=== PATIENT | female | born 1940 | race Caucasian/White ===

== ENCOUNTER → 2016-12-30 | Outpatient (CLI) | payer OTHER, BC ==
[~2016-12-30] VITALS: Ht 157.5 cm; Wt 64.0 kg
[~2016-12-30] MED LIST: ADVAIR 250-501 EACH INH; AMBEREN PO; AMBIEN 5 MG TABL5 M1 PO; AMITRIPTYLINE H10 M3 PO; AMITRIPTYLINE H25 M2 PO; APAP500 PO; BENICAR20 MG PO; CALCIUM 600 +1 EAC5 PO; CALTRATE-600 W1 EACH PO; CELEBREX 200 M200 M1 PO; COMPOUND CREAM; ELAVIL PO; GABAPENTIN100 MG PO; HCTZ PO; HYDROCHLOROTHIA25 M1 PO; HYDROCODON-ACE1 EAC7 PO; HYDROCODON-ACE1 EACH PO; HYDROCODONE-AP1 EAC6 PO; IRON PO; IRON325 PO; LEVOTHYROXINE0.05 MG PO; LIPITOR PO; LIPITOR10 MG PO; NEURONTIN 300300 M1 PO; PRAVACHOL20 MG PO; PREVACID 30MG C30 M1 PO; PRILOSEC 10MG C10 MG PO; PROZAC 20 MG20 M1 PO; SUPER B-50 COM1 EACH PO; TRAMADOL 50 MG50 MG PO; VITAMIN D; VITAMIN D1000 UNI1 PO; VITAMINC500 PO; VOLTAREN GEL 1100 G1
--- NOTE | ~2016-12-30 | HPC ---
[facility] [place] [address] PAIN MANAGEMENT CONSULTATION Name: DAREK KISER Room #: REG RENITA Ki.#: [id number] Admission: 12/30/16 Attend Phys: Antelmo Hodgson MD Discharge: Date of : 39 Report #: [id number] THIS REPORT FOR: //name// CC: Med Hodgson DATE OF SERVICE: 12/30/2016 Followup visit for trochanteric bursitis. The patient returns to the pain clinic today for injections. I remember writing over the injections off and on now for nearly 10 years for this trochanteric bursitis. She responds almost always. Last time she had received an injection, she had months of good pain relief, though pain is now returning. She has a lot of family graduations coming up and she would like to be at her best for that. She will be on her feet a lot. Pain is scored as an 8/10, particularly with standing or walking. Pain is in the low back, but really the majority of her pain is well localized right over the greater trochanter on each side. MEDICATIONS: Omeprazole, Celebrex, amitriptyline, acetaminophen, Pravachol, vitamin C, vitamin B, levothyroxine, calcium, hydrochlorothiazide, Ambien, Prevacid, Prozac and Benicar. ALLERGIES: CEPHALEXIN, ASPIRIN and MELOXICAM. PHYSICAL EXAMINATION: GENERAL: The patient is a delightful 76-year-old, who looks younger than her stated age. VITAL SIGNS: Her blood pressure is 149/76, heart rate 73. MUSCULOSKELETAL: She moves from sitting to standing position, walks with antalgic feature. She has a positive Meera affecting each hip. She has exquisite tenderness over the greater trochanter bilaterally, consistent with her previous diagnosis of trochanteric bursitis. IMPRESSION: Bilateral trochanteric bursitis. PROCEDURE: Bilateral injection of trochanteric bursa. DESCRIPTION OF PROCEDURE: Skin was prepped with ChloraPrep first on the right. Skin was anesthetized and a 25-gauge needle was used to infiltrate a total of 5 mL of bupivacaine mixed with 40 mg of triamcinolone. She tolerated the procedure well. Needle was removed. She was moved to the opposite side and the left trochanteric bursa was injected also with 5 mL of bupivacaine and 40 mg of triamcinolone. [address] [address] PAIN MANAGEMENT CONSULTATION Name: DAREK KISER Room #: REG RENITA Flannery#: [id number] Admission: 12/30/16 Attend Phys: Antelmo Hodgson MD Discharge: Date of : 39 Report #: [id number] She tolerated the procedure well. Pain was markedly reduced at discharge and we will see her back in the clinic as needed. By: [id number] 0133 Antelmo Hodgson MD /nt
[2016-12-30 14:26] VITALS: BP 134/76
== END | disposition home or self-care (01) ==
LOC: PAIN 07:01
DX: M70.62 Trochanteric bursitis, left hip (principal); M70.61 Trochanteric bursitis, right hip; G89.29 Other chronic pain; Z87.891 Personal history of nicotine dependence

== ENCOUNTER → 2017-05-24 | Outpatient (CLI) | payer OTHER, BC ==
[~2017-05-24] VITALS: Ht 157.5 cm; Wt 65.0 kg
--- NOTE | ~2017-05-24 | HPC ---
[facility] [address] [address] PAIN MANAGEMENT CONSULTATION Name: DAREK KISER Room #: REG [facility].#: [id number] Admission: 05/24/17 Attend Phys: Antelmo Hodgson MD Discharge: Date of : 39 Report #: [id number] THIS REPORT FOR: //name// CC: Med Hodgson DATE OF SERVICE: 05/24/2017 Followup visit for trochanteric bursitis, bilateral. Managing the patient in the clinic now for nearly a decade. She comes in periodically for injections for her trochanteric bursitis. She fortunately responds beautifully to injections, gets nearly complete pain relief, up to 90% pain relief and it lasts generally for 2-3 months. After the injections, she is able to do most of her activities with great improvement including walking and standing and working in the kitchen and doing household activities. She is here today for an injection, hopeful to avoid additional strong pain medication. MEDICATIONS: Reviewed and reconciled. ALLERGIES: KEFLEX, ASPIRIN, MELOXICAM. PHYSICAL EXAMINATION: Blood pressure 118/68, pulse is 87, respirations 16. BMI is 26.2. She has localized tenderness quite significant overlying the trochanter on each side. Pain radiates both forward and backward. It does not extend more than about 3 fingerwidths below the most prominent point of the greater trochanter palpated laterally. IMPRESSION: Bilateral trochanteric bursitis. PROCEDURE: Trochanteric bursa injection, bilateral. PROCEDURE: The patient was placed first in the left lateral decubitus position. Skin was prepped over the right greater trochanter. A 25-gauge needle was used to infiltrate a total of 5 mL 0.25% bupivacaine mixed with 40 mg of triamcinolone. Needle was removed. The patient was repositioned with the left hip down, right hip up and the right greater trochanter was identified with exquisite tenderness reported by the patient. I then gently injected an additional 5 mL of 0.25% bupivacaine mixed with 40 mg triamcinolone. She tolerated the procedure well and was observed for 30 minutes and discharged. [address] [address] PAIN MANAGEMENT CONSULTATION Name: RASHELDAREK YOU [facility] [id number] Admission: 05/24/17 Attend Phys: Antelmo Hodgson MD Discharge: Date of : 39 Report #: [id number] Followup visit planned in the Pain Clinic on a p.r.n. basis. By: 1156 0009 Antelmo Hodgson MD /nt
[2017-05-24 09:35] VITALS: BP 118/68
== END | disposition home or self-care (01) ==
LOC: PAIN 07:19
DX: M70.62 Trochanteric bursitis, left hip (principal); M70.61 Trochanteric bursitis, right hip; G89.29 Other chronic pain; Z88.6 Allergy status to analgesic agent; Z88.1 Allergy status to other antibiotic agents; Z87.891 Personal history of nicotine dependence; Z79.899 Other long term (current) drug therapy; Z98.890 Other specified postprocedural states

== ENCOUNTER → 2017-11-25 | Outpatient (CLI) | payer OTHER, BC ==
[~2017-11-25] VITALS: Ht 157.5 cm; Wt 65.4 kg
[~2017-11-25] MED LIST changes: +BENICAR40 MG PO
--- NOTE | ~2017-11-25 | HPC ---
[facility] [place] [address] PAIN MANAGEMENT CONSULTATION Name: DAREK KISER Room #: REG [facility] [id number] Admission: 11/25/17 Attend Phys: Antelmo Hodgson MD Discharge: Date of : 39 Report #: [id number] THIS REPORT FOR: //name// CC: Med Hodgson DATE OF SERVICE: 11/25/2017 Followup visit for management of trochanteric bursitis. This is a followup for the patient, who returns to Pain Clinic today for injection. She was first seen in our clinic in 1999. So, it has been 19 years that I have known her. Over the course of the last 19 years, she has responded beautifully to injections for trochanteric bursitis. In 2014, 2015, and 2016, she received no more than 3 injections when the pain became severe. She presents today for injection. She says that her pain score intensity is high 8/10 with localized tenderness. Pain is directly over the trochanteric bursa. It is made worse with standing and walking. New changes include arthritis of the left knee, which has progressed to the point requiring arthroscopy in 08/2017. She has been discussing the possibility of a knee replacement. MEDICATIONS: Reviewed and reconciled from the electronic medical record. I do not provide medication for her. Her primary care physician is Dr. Med Christopher. We did discuss the possibility of having a small amount of hydrocodone on hand to use only for severe pain. She has used this in the past with success. I have agreed to provide her with 30 tablets not to be used on a daily basis, but to be used when the pain is severe. PQRS review shows her to be fit and active for 76-year-old. She is 5 feet 2 inches, 144 with BMI of 26.4. Blood pressure is 133/65, heart rate 88. Her O2 sats is 100. Pain intensity 8/10. She is not a fall risk. She does not require the need of a cane or a walker. She is on no blood thinners. She has been treated by Dr. Christopher for hypertension and is well managed. She did in the past used opioids on a more regular basis. She signed an opioid agreement in fact on 05/08/2016, but I have not provided her with medication since that time. We reviewed the opioid crisis in [place] and the responsibilities of safeguarding even the small amount of medication and use cautiously for severe pain episodes. Physical exam reveals exquisite bilateral tenderness over the greater trochanter. IMPRESSION: Trochanteric bursitis, which has responded favorably to injections. [address] [address] PAIN MANAGEMENT CONSULTATION Name: DAREK KISER Room #: REG [facility].#: [id number] Admission: 11/25/17 Attend Phys: Antelmo Hodgson MD Discharge: Date of : 39 Report #: [id number] PROCEDURE: Bilateral trochanteric bursa injection. The patient was placed in the left lateral decubitus position. Skin was prepped over the right greater trochanter. I used a 2-inch 25-gauge needle to infiltrate a total of 5 mL of 0.25% bupivacaine with 40 mg of triamcinolone around the bursa and greater trochanter. Needle was removed. The patient was repositioned with the left hip down on the right hip up. I reinjected that side in the similar fashion. Same medication was used as well. She tolerated the procedure well. She was observed for 45 minutes and discharged with a followup visit scheduled in the Pain Clinic on an as needed basis. <ELECTRONICALLY SIGNED> By: Antelmo Hodgson MD 12/20/17 1408 [id number] [id number] Antelmo Hodgson MD /nt
[2017-11-25 10:21] VITALS: BP 133/65
== END | disposition home or self-care (01) ==
LOC: PAIN 06:57
DX: M70.62 Trochanteric bursitis, left hip (principal); M70.61 Trochanteric bursitis, right hip; Z87.891 Personal history of nicotine dependence

== ENCOUNTER → 2018-02-03 | Outpatient (CLI) | payer OTHER, BC ==
[~2018-02-03] VITALS: Ht 157.5 cm; Wt 65.3 kg
--- NOTE | ~2018-02-03 | HPC ---
[facility] [place] [address] PAIN MANAGEMENT CONSULTATION Name: DAREK KISER Room #: REG R[facility]ITA Ki.#: [id number] Admission: 02/03/18 Attend Phys: Antelmo Hodgson MD Discharge: Date of : 39 Report #: [id number] THIS REPORT FOR: //name// CC: Med Hodgson DATE OF SERVICE: 02/03/2018 Followup visit for bilateral trochanteric bursitis. The patient returns to pain clinic today for injections. She has always responded fairly well to these trochanteric injections. The duration of response has not been quite as good for her most recent injection. She would like to repeat the injection today. Pain is worse on the right. She went to a seminar recently for stem cells. There may be a role for stem cells in this condition in the future; however, at the exorbitant cost, I think that it is something I would not recommend for her. The physician who put on the seminar did not make a great impression on the patient. I will keep abreast of the scientific literature and if in the future feel that this may provide better or more lasting relief, I will let her know. PQRS reviewed today shows no history of osteoarthritis. She has a BMI of 26. She has a history of hypertension, under treatment by primary. She is on an opioid agreement signed once again on 02/03/2018. Her risk assessment tool is zero, functional assessment tool of 33/70. PHYSICAL EXAMINATION: BMI is 26. Blood pressure 104/67, heart rate 84. Examination of the area of pain reveals tenderness directly overlying the greater trochanter on each side. IMPRESSION: Trochanteric bursitis, which has previously and always responded fairly well to injection therapy. PROCEDURE: Trochanteric bursa injection. She was placed first on the left side and skin was prepped with ChloraPrep. A 25-gauge needle was used to infiltrate a total of 5 mL of bupivacaine 0.5% with 40 mg triamcinolone. Needle was removed. She was repositioned on the left, right hip up and I injected the area surrounding the greater trochanter with 5 mL of 0.5% bupivacaine mixed with 40 mg triamcinolone. She tolerated the procedure well. She was observed for [address] [facility] [address] [place] [address] PAIN MANAGEMENT CONSULTATION Name: DAREK KISER Room #: REG [facility].#: [id number] Admission: 02/03/18 Attend Phys: Antelmo Hodgson MD Discharge: Date of : 39 Report #: [id number] minutes and discharged. Pain reduction was only minimal at discharge. Hopefully, she will see further improvement over the next day or so. <ELECTRONICALLY SIGNED> By: Antelmo Hodgson MD 03/14/18 1230 [id number] [id number] Antelmo Hodgson MD /nt
[2018-02-03 10:27] VITALS: BP 104/67
== END | disposition home or self-care (01) ==
LOC: PAIN 07:05
DX: M70.61 Trochanteric bursitis, right hip (principal); M70.62 Trochanteric bursitis, left hip; G89.29 Other chronic pain; I10 Essential (primary) hypertension; Z87.891 Personal history of nicotine dependence; Z88.8 Allergy status to other drugs, medicaments and biological substances; Z79.891 Long term (current) use of opiate analgesic; Z79.899 Other long term (current) drug therapy

== ENCOUNTER → 2018-03-10 | Outpatient (CLI) | payer OTHER, BC ==
[~2018-03-10] VITALS: Ht 157.5 cm; Wt 65.8 kg
--- NOTE | ~2018-03-10 | HPC ---
[facility] [place] [address] PAIN MANAGEMENT CONSULTATION Name: DAREK KISER Room #: REG [facility] Ki.#: [id number] Admission: 03/10/18 Attend Phys: Antelmo Hodgson MD Discharge: Date of : 39 Report #: [id number] THIS REPORT FOR: //name// CC: Med Hodgson DATE OF SERVICE: 03/10/2018 DATE OF REGISTRATION: 03/10/2018 REASON FOR VISIT: Followup visit for severe pain, left knee. HISTORY OF PRESENT ILLNESS: The patient was here for evaluation about a month ago. She has trochanteric bursitis, which does respond almost always to local injection. She complained at that time pain in her left knee and I told her about treatment options. She had a meniscectomy performed in August and has had some pain that has been persistent ever since. One option would be to treat with medication including nonsteroidal anti-inflammatory drugs. She tries to exercise regularly with some crepitus noted. She is usually able to do okay, but with prolonged activity, the pain seems to increase. We talked a bit about some alternative treatments available that she would have to pay for, such as stem cells, which have shown some success, although it is not reimbursed by insurance. Injection of triamcinolone seems to be a standard treatment has been effective for many patients as long as it is not over utilized. She would like to have an injection today. PHYSICAL EXAMINATION: GENERAL: She is pleasant, alert and oriented. VITAL SIGNS: Blood pressure is 133/65, heart rate 88, respirations 20, O2 sat 100%. She is 5 feet 2 inches, BMI of 26.4. MUSCULOSKELETAL: She has pain noted with flexion and extension. Mild crepitus in the area subpatellar worse on the medial aspect of the knee in the left. IMAGING: X-ray showed mild degenerative changes without significant osseous changes. IMPRESSION: Osteoarthritis, left knee. PROCEDURE: Left knee injection with fluoroscopic guidance. DESCRIPTION OF PROCEDURE: She was taken to fluoroscopic suite, placed supine. Skin prepped with ChloraPrep. A 25-gauge needle was gently advanced into the knee joint using a medial approach. After negative aspiration, I gently injected 4 mL of 0.5% bupivacaine mixed with 40 mg of triamcinolone. She [address] [address] PAIN MANAGEMENT CONSULTATION Name: DAREK KISER Room #: REG [facility].#: [id number] Admission: 03/10/18 Attend Phys: Antelmo Hodgson MD Discharge: Date of : 39 Report #: [id number] tolerated the procedure well. She was taken to recovery room for short observation and discharged. I will see her back on an as-needed basis. <ELECTRONICALLY SIGNED> By: Antelmo Hodgson MD 03/14/18 1230 1117 2256 Antelmo Hodgson MD /regi
[2018-03-10 10:40] VITALS: BP 136/76
== END | disposition home or self-care (01) ==
LOC: PAIN 07:23
DX: M17.12 Unilateral primary osteoarthritis, left knee (principal); Z98.890 Other specified postprocedural states; Z87.891 Personal history of nicotine dependence

== ENCOUNTER → 2018-06-13 | Outpatient (CLI) | payer OTHER, BC ==
[~2018-06-13] VITALS: Ht 157.5 cm; Wt 64.3 kg
--- NOTE | ~2018-06-13 | HPC ---
[facility] [place] [address] PAIN MANAGEMENT CONSULTATION Name: DAREK KISER Room #: REG [facility] Ki.#: [id number] Admission: 06/13/18 Attend Phys: Antelmo Hodgson MD Discharge: Date of : 39 Report #: [id number] THIS REPORT FOR: //name// CC: Med Hodgson DATE OF SERVICE: 06/13/2018 Followup visit for chronic pain. The patient is here today with 2 pains. She twisted and injured her left knee and has had a lot of difficulty standing and bearing weight over the course of the last 2 weeks. Pain is mostly in the area just below the patella. Her other pain is chronic in nature and we will see her on a frequent basis for bilateral trochanteric bursitis, which responds favorably to intermittent injections with triamcinolone. We found no other way of managing effectively. No other changes in her medical history since last visit. PHYSICAL EXAMINATION AND PQRS REVIEW: She has osteoarthritis of the knee I believe. This is confirmed by exam today. She is 5 feet, 2; 141 pounds with a BMI of 25.9. She has a pain intensity of 6/10. All medications were reviewed and reconciled. She is on no blood thinners and does have medication that she takes for hypertension as noted on the electronic medical record. She is also on opioid medication, which we provided long-term and she has signed an opioid agreement. She is at low risk for addiction. She has completed an opioid risk tool. I provide for her under terms of our agreement hydrocodone 5/325 just 30 tablets to have on hand when the pain is severe. I would put her MME at less than 5. She does not smoke nor use alcohol. BMI is 25. Further examination reveals localized tenderness bilaterally over the trochanteric bursa on both the right and left. She has rather significant tenderness in the upper portion of the knee around the patella. There is slight swelling. There is mild crepitus with flexion and extension. Drawer test is negative. IMPRESSION: 1. Chronic trochanteric bursitis, recurrent. 2. Subpatellar bursitis and osteoarthritis, left knee. RECOMMENDATIONS: I will provide injection in all 3 of these areas using a total of 80 mg of triamcinolone divided evenly at each bursa injected in combination with bupivacaine. Risks and benefits of procedures were discussed. She would like to proceed. [address] [address] PAIN MANAGEMENT CONSULTATION Name: DAREK KISER [id number] Admission: 06/13/18 Attend Phys: Antelmo Hodgson MD Discharge: Date of : 39 Report #: [id number] PROCEDURE: The patient was taken to fluoroscopic suite. She was placed in the supine position. Skin was prepped first on the left and then the right overlying the trochanter. A 25-gauge needle was utilized to inject the trochanteric bursa on each side with 4 mL of 0.5% bupivacaine mixed with 30 mg of triamcinolone. Avalon were removed and Band-Aids were applied. Skin was prepped overlying the knee joint. We used fluoroscopic guidance to help confirm position. A 25-gauge needle was advanced subpatellar. A total of 1% lidocaine was injected. Isovue was not injected for this particular injection injected below the patella with good location using injection. I then after negative aspiration, I injected a total of 4 mL of 0.5% bupivacaine mixed with 30 mg of triamcinolone. She tolerated the procedure well and was observed for about 30 minutes and discharged. Pain reduced in all areas. Follow up as needed. By: [id number] 0143 Antelmo Hodgson MD /regi
[2018-06-13 09:10] VITALS: BP 140/98
== END | disposition home or self-care (01) ==
LOC: PAIN 07:29
DX: M70.62 Trochanteric bursitis, left hip (principal); M70.61 Trochanteric bursitis, right hip; M70.52 Other bursitis of knee, left knee; G89.29 Other chronic pain; Z85.828 Personal history of other malignant neoplasm of skin; Z88.1 Allergy status to other antibiotic agents; Z87.891 Personal history of nicotine dependence; Z88.8 Allergy status to other drugs, medicaments and biological substances; Z79.899 Other long term (current) drug therapy; Z79.891 Long term (current) use of opiate analgesic

== ENCOUNTER → 2018-08-11 | Outpatient (CLI) | payer OTHER, BC ==
[~2018-08-11] VITALS: Ht 157.5 cm; Wt 65.9 kg
--- NOTE | ~2018-08-11 | HPC ---
[facility] [address] [place] [address] PAIN MANAGEMENT CONSULTATION Name: DAREK KISER Room #: REG [facility]..#: [id number] Admission: 08/11/18 Attend Phys: Antelmo Hodgson MD Discharge: Date of : 39 Report #: [id number] THIS REPORT FOR: //name// CC: Med Vidal MD DATE OF SERVICE: 08/11/2018 CHIEF COMPLAINT: Followup visit for chronic bilateral hip pain with recurrent trochanteric bursitis and subpatellar bursitis and osteoarthritis, left knee. HISTORY OF PRESENT ILLNESS: The patient is here today to discuss her ongoing knee pain. She has considerable discomfort of the knee and it has now been present for some time. She has had a plain film x-ray which shows moderate osteoarthritis prominent in the femoral patellar compartment and a small joint effusion. It is harder and harder for her to bear weight. Her pain in the hips is tolerable and she would like to wait on repeat injections there. Normally, repeat those injections no more frequently than every 3 months. PQRS review: She has osteoarthritis of the left knee. BMI is 25.4. Pain intensity 6/10. No blood thinning medication. She is on medication for hypertension and all the medications were reviewed on the electronic medical record. She receives medication for chronic pain on an opioid agreement, hydrocodone 5/325, 30 tablets, has utilized over several months only for severe pain. She denies use of tobacco or alcohol. ADDENDUM She has now diffuse tenderness of the left knee. There is discomfort also posteriorly in the popliteal fossa. Most of the tenderness appears to be around the patella as before. There is a small joint effusion appreciated. IMPRESSION: 1. Osteoarthritis, left knee. 2. Chronic trochanteric bursitis. RECOMMENDATIONS: I referred her to Dr. Dylan Vidal for evaluation. She may be a candidate now for total knee replacement at some point in time. I will let her discuss that further with Dr. Vidal. I performed an injection at her last visit, which provided only minimal relief. I have informed her that this is an elective procedure and she can use her own judgment along with shared decision making after discussing her situation with Dr. Vidal. [address] [address] PAIN MANAGEMENT CONSULTATION Name: DAREK KISER Room #: REG [facility].#: [id number] Admission: 08/11/18 Attend Phys: Antelmo Hodgson MD Discharge: Date of : 39 Report #: [id number] I renewed her hydrocodone at 30 tablets. She will carefully safeguard them. I will see her back on an as needed basis for her hips. By: [id number] Antelmo Hodgson MD /nt
[2018-08-11 13:32] VITALS: BP 131/79
== END ==
LOC: PAIN 07-11 06:07
DX: M17.12 Unilateral primary osteoarthritis, left knee (principal); M70.61 Trochanteric bursitis, right hip; M70.62 Trochanteric bursitis, left hip; Y93.89 Activity, other specified; Z79.899 Other long term (current) drug therapy

== ENCOUNTER → 2018-09-08 | Outpatient (CLI) | payer OTHER, BC ==
[~2018-09-08] VITALS: Ht 157.5 cm; Wt 65.9 kg
--- NOTE | ~2018-09-08 | HPC ---
[facility] [place] [place] [address] PAIN MANAGEMENT CONSULTATION Name: DAREK KISER Room #: REG [facility].#: [id number] Admission: 09/08/18 Attend Phys: Antelmo Hodgson MD Discharge: Date of : 39 Report #: [id number] THIS REPORT FOR: //name// CC: Med Hodgson DATE OF SERVICE: 09/08/2018 The patient was seen on 09/08/2018 in the pain clinic. I was unable to document due to downtime of the dictating system and I was unable to document on the routine medical record. A note of her visit was hand typed into the record on the bulletin board and can be retrieved from the electronic medical record on that location. By: [id number] Antelmo Hodgson MD /nt
[2018-09-08 10:59] VITALS: BP 133/73
--- NOTE | 2018-09-08 11:14 | NUR ---
Pain Clinic Assessment: 1. History of Osteoarthritis: Not Applicable History of Rheumatoid Arthritis: Not Applicable 2. Height: 5 ft. 2 in. 157.5 cm. Weight: 145.2 lb. oz. 65.862 kg. Patient's BMI: 26.6 3. Vital Signs: BP: 133/73 Pulse: 87 Resp: 14 Temp: 02 Sat: 96 ECG Mon: 4. Pain Intensity: 6 5. Fall Risk: Dizziness: N Needs help standing or walking: N Fallen in the last 3 months: N Fall risk comments: fell a week ago- hit head- ER- HAS SEEN PCP 6. Patient on Blood Thinner: None 7. History of Hypertension: Y 8. Opioid Therapy greater than 6 weeks: Y Opiate Contract Signed: 02/03/18 9. Risk Assessment Tool Provided: janie 10. Functional Assessment Tool: 11. Recreational Drug Use: Never Drug Type: Tobacco Use: Former Smoker Tobacco Type: Amount or Packs/day: How Many Years: Alcohol Use: No Frequency: Quant:
== END | disposition home or self-care (01) ==
LOC: PAIN 07:40
DX: M70.62 Trochanteric bursitis, left hip (principal); M70.61 Trochanteric bursitis, right hip; M16.0 Bilateral primary osteoarthritis of hip; M17.0 Bilateral primary osteoarthritis of knee; G89.29 Other chronic pain; Z87.891 Personal history of nicotine dependence; Z88.8 Allergy status to other drugs, medicaments and biological substances; Z98.890 Other specified postprocedural states; Z79.899 Other long term (current) drug therapy

== ENCOUNTER → 2018-12-08 | Outpatient (CLI) | payer OTHER, BC ==
[~2018-12-08] VITALS: Ht 157.5 cm; Wt 66.4 kg
--- NOTE | ~2018-12-08 | HPC ---
[facility] [place] [address] PAIN MANAGEMENT CONSULTATION Name: DAREK KISER Room #: REG Pradeep Ki.#: [id number] Admission: 12/08/18 ������������������ Attend Phys: Antelmo Hodgson MD Discharge: ������������������ Date of : 38 Report #: [id number] THIS REPORT FOR: //name// CC: Med Hodgson DATE OF SERVICE: 12/08/2018 Followup visit for chronic fibromyalgia, osteoarthritis of bilateral knees and severe trochanteric bursitis. This is a followup visit for the patient who is here today for bilateral trochanteric bursa injections. She has done well with these injections, receiving many months of pain relief. When the pain is severe, as it is now with an 8/10, she returns to clinic for injections. We have been doing this on and off, no more than 3-4 injections per year for several years. She has an open wound on her left leg. She had hoped to have knee replacement for osteoarthritis, but will be unable to have that surgery until the wound is completely healed. She was treated with Cipro, but found that this caused increase in her fibromyalgia pain. PQRS demonstrates that she does have osteoarthritis of the knees and hips. She is on Benicar for hypertension and no blood thinners. She is not a fall risk and has not fallen recently. Her blood pressure is 147/73, heart rate 83, respirations 16. BMI 26. She is on very low-dose opioid using only an occasional 5 mg hydrocodone when the pain is very severe. She has completed an opioid risk tool and is at low risk for addiction. SOCIAL HISTORY: She denies use of tobacco or alcohol. IMPRESSION: 1. Chronic fibromyalgia. 2. Trochanteric bursitis. 3. Osteoarthritis. 4. Open wound. 5. Management of medication under terms of written opioid agreement. Low-dose hydrocodone less than 5 MME calculated. PROCEDURE: Bilateral trochanteric bursa injection. Skin prepped with ChloraPrep and a 25-gauge needle was used to infiltrate 5 mL of 0.5% bupivacaine mixed with 40 mg of triamcinolone around the trochanteric bursa on each side. She tolerated the procedure well. Pain was dramatically [facility] [address] [place] [address] PAIN MANAGEMENT CONSULTATION Name: DAREK KISER Room #: REG [facility].#: [id number] Admission: 12/08/18 ������������������ Attend Phys: Antelmo Hodgson MD Discharge: ������������������ Date of : 38 Report #: [id number] reduced at discharge and followup visit is planned as needed. Medications were renewed under terms of our written agreement. She was given 30 tablets of hydrocodone 5/325 one tablet as needed q. 8 hours. ��������������������������������������������� ���������������������������������������� By: ��������������������������������������������� [id number] 0047 Antelmo Hodgson MD /nt
[2018-12-08 10:09] VITALS: BP 147/73
--- NOTE | 2018-12-08 10:13 | NUR ---
Pain Clinic Assessment: 1. History of Osteoarthritis: Not Applicable History of Rheumatoid Arthritis: Not Applicable 2. Height: 5 ft. 2 in. 157.5 cm. Weight: 146.4 lb. oz. 66.407 kg. Patient's BMI: 26.8 3. Vital Signs: BP: 147/73 Pulse: 83 Resp: 16 Temp: 02 Sat: 96 ECG Mon: 4. Pain Intensity: 8 5. Fall Risk: Dizziness: N Needs help standing or walking: N Fallen in the last 3 months: N Fall risk comments: fell a week ago- hit head- ER- HAS SEEN PCP 6. Patient on Blood Thinner: None 7. History of Hypertension: Y 8. Opioid Therapy greater than 6 weeks: Y Opiate Contract Signed: 02/03/18 9. Risk Assessment Tool Provided: janie 10. Functional Assessment Tool: 11. Recreational Drug Use: Never Drug Type: Tobacco Use: Former Smoker Tobacco Type: Amount or Packs/day: How Many Years: Alcohol Use: No Frequency: Quant:
== END | disposition home or self-care (01) ==
LOC: PAIN 06:57
DX: M70.62 Trochanteric bursitis, left hip (principal); M70.61 Trochanteric bursitis, right hip; M79.7 Fibromyalgia; G89.29 Other chronic pain; I10 Essential (primary) hypertension; M16.0 Bilateral primary osteoarthritis of hip; M17.0 Bilateral primary osteoarthritis of knee; Z79.891 Long term (current) use of opiate analgesic; S81.802A Unspecified open wound, left lower leg, initial encounter; X58.XXXA Exposure to other specified factors, initial encounter; Y93.89 Activity, other specified; Y92.89 Other specified places as the place of occurrence of the external cause; Y99.8 Other external cause status; Z98.890 Other specified postprocedural states; Z79.899 Other long term (current) drug therapy; Z87.891 Personal history of nicotine dependence; Z88.8 Allergy status to other drugs, medicaments and biological substances

== ENCOUNTER → 2019-02-13 | Outpatient (CLI) | payer OTHER, BC ==
[~2019-02-13] VITALS: Ht 157.5 cm; Wt 67.2 kg
[~2019-02-13] MED LIST changes: +GABAPENTIN 100100 MG PO; +LIDODERM1 EACH TRANSDERM
--- NOTE | ~2019-02-13 | HPC ---
[facility] [place] [address] PAIN MANAGEMENT CONSULTATION Name: DAREK KISER Room #: REG RENITA Ki.#: [id number] Admission: 02/13/19 ������������������ Attend Phys: Antelmo Hodgson MD Discharge: ������������������ Date of : 39 Report #: [id number] THIS REPORT FOR: //name// CC: Med Hodgson DATE OF SERVICE: 02/13/2019 Followup visit for chronic fibromyalgia pain and severe trochanteric bursitis. Bilateral knee pain with osteoarthritis. The patient was seen last on 12/08/2018. She is here today again complaining of pain bilaterally in the trochanteric bursa. She has responded to injections; however, we have performed these injections quite frequently over the course of the last 6 months. I would like to try another measure. She has never used lidocaine patches. This might be helpful so that we can limit her steroid. She has had a fall in the last week. She hit her head, has been in the Emergency Room and also seen her primary care physician. It does not appear that she suffered any significant lasting injury from this fall. She was a bit unsteady on her feet. Most of her pain is in the usual locations, bilateral hips. She has continued to treat the wound on her right leg, which is slowly healing. PQRS shows history of osteoarthritis is positive. She is under treatment for hypertension. She takes opioid medication, hydrocodone 5/325 under terms of written opioid agreement. We reviewed responsibilities. She is grateful for the relief that she receives and is able to improve her day-to-day function with medications. She safeguards her medication carefully and there are no significant side effects. She has completed an opioid risk assessment tool scoring 0. SOCIAL HISTORY: She denies use of tobacco and alcohol. PHYSICAL EXAMINATION: GENERAL: She is a pleasant 78-year-old female. VITAL SIGNS: Blood pressure 142/72, heart rate 77, respirations 16. BMI 27. She moves easily from sitting to standing position. Her gait is antalgic. MUSCULOSKELETAL: Reveals tenderness bilaterally overlying the greater trochanter. IMPRESSION: 1. Trochanteric bursitis. 2. Chronic fibromyalgia. 3. Management of opioid medication under terms of written agreement. She has [facility] [address] [place] [address] PAIN MANAGEMENT CONSULTATION Name: DAREK KISER Room #: REG [facility].#: [id number] Admission: 02/13/19 ������������������ Attend Phys: Antelmo Hodgson MD Discharge: ������������������ Date of : 39 Report #: [id number] medication currently, which will extend over the next month. I will renew her medication for her today. 4. I have also initiated therapy with Lidoderm patch, bilateral. She has had a history of shingles in the past. A followup visit is scheduled in 1-2 months. ��������������������������������������������� ���������������������������������������� By: ��������������������������������������������� [id number] Antelmo Hodgson MD /nt
[2019-02-13 11:39] VITALS: BP 142/72
--- NOTE | 2019-02-13 11:52 | NUR ---
Pain Clinic Assessment: 1. History of Osteoarthritis: Not Applicable History of Rheumatoid Arthritis: Not Applicable 2. Height: 5 ft. 2 in. 157.5 cm. Weight: 148.2 lb. oz. 67.223 kg. Patient's BMI: 27.1 3. Vital Signs: BP: 142/72 Pulse: 77 Resp: 16 Temp: 02 Sat: 97 ECG Mon: 4. Pain Intensity: 7-8 5. Fall Risk: Dizziness: N Needs help standing or walking: N Fallen in the last 3 months: N Fall risk comments: fell a week ago- hit head- ER- HAS SEEN PCP 6. Patient on Blood Thinner: None 7. History of Hypertension: Y 8. Opioid Therapy greater than 6 weeks: Y Opiate Contract Signed: 02/03/18 9. Risk Assessment Tool Provided: janie 10. Functional Assessment Tool: 11. Recreational Drug Use: Never Drug Type: Tobacco Use: Former Smoker Tobacco Type: Amount or Packs/day: How Many Years: Alcohol Use: No Frequency: Quant:
== END ==
LOC: PAIN 06:42
DX: M17.0 Bilateral primary osteoarthritis of knee (principal); M79.7 Fibromyalgia; M70.60 Trochanteric bursitis, unspecified hip; Z79.891 Long term (current) use of opiate analgesic

== ENCOUNTER → 2020-02-12 | Outpatient (CLI) | payer OTHER, BC ==
[~2020-02-12] VITALS: Ht 157.5 cm; Wt 61.9 kg
--- NOTE | ~2020-02-12 | HPC ---
[facility] [place] [address] PAIN MANAGEMENT CONSULTATION Name: DAREK BRYAN Room #: REG [facility] Prudencio#: [id number] Admission: 02/12/20 Attend Phys: Antelmo Hodgson MD Discharge: Date of : 39 Report #: [id number] THIS REPORT FOR: cc: Med Christopher MD,Med Hodgson,Antelmo Jacques MD ~ CC: Med Hodgson DATE OF SERVICE: 02/12/2020 CHIEF COMPLAINT: Right knee pain. The patient is a longstanding patient who has had multiple injections for trochanteric bursitis in our clinic. She comes today complaining of pain in the right knee. She has had it injected over a month ago, but the results were limited. They were performed without the benefit of x-ray. She is here today to see if we could repeat the injection. She reports that she had her left knee replaced, but is still complaining of some pain. The right knee is painful with standing, weightbearing, and going up and down steps. She has modest amount of crepitus. The patient also complains of fibromyalgia and severe chronic pain from that, diffuse condition. PQRS review positive for osteoarthritis of knees and hips with rheumatoid arthritis with the hands most affected. She has a BMI of 24.9. Blood pressure 157/91, heart rate 61, respirations 16, O2 sat 98. Pain intensity is 8/10. She fell 1 week ago and hit her head. She went to the Emergency Room and she has seen her primary care physician, but there was no additional diagnostic testing her concern. She still has a bit of discomfort. She is on no blood thinners. She does have a history of hypertension. We reviewed all of her medications today including her antihypertensive provided by primary care physician. They are noted on the electronic medical record. She is on an opioid agreement signed in 2018. She uses hydrocodone modestly. A prescription for hydrocodone was provided last in our clinic in 2019. She tries to avoid them if possible. She has completed her risk assessment tool, her score is 0. Functional assessment score of 52/70. Pain impacts many of her day-to-day activities. She denies use of alcohol or tobacco. PHYSICAL EXAMINATION: VITAL SIGNS: As noted. MUSCULOSKELETAL: Reveals tenderness around the right knee and some mild crepitus with flexion, extension range of motion is normal. She has some mild swelling laterally. There is no Holt cyst. She has no numbness, tingling, [place] [address] PAIN MANAGEMENT CONSULTATION Name: DAREK BRYAN [id number] Admission: 02/12/20 Attend Phys: Antelmo Hodgson MD Discharge: Date of : 39 Report #: [id number] weakness in lower extremities. Examination of the left knee reveals tenderness around her scar. IMPRESSION: Osteoarthritis, status post left knee replacement, right knee pain with crepitus suggesting arthritis. PLAN: Right knee injection under fluoroscopic guidance. DESCRIPTION OF PROCEDURE: She was taken to fluoroscopic suite, placed supine. Skin was prepped over the right knee. The knee was bent slightly at 45 degrees. Using fluoroscopic guidance, I gently advanced a 25-gauge needle into the joint space. After negative aspiration, I injected 0.5 mL of Omnipaque, which demonstrated spread within the joint space and an arthrogram. This was then followed by 4 mL of 0.5% bupivacaine mixed with 40 mg of triamcinolone. She tolerated the procedure well and was observed for 30 minutes and discharged. Follow up as needed. By: [id number] Antelmo Hodgson MD /nt
[2020-02-12 13:51] VITALS: BP 157/91
--- NOTE | 2020-02-12 14:03 | NUR ---
Pain Clinic Assessment: 1. History of Osteoarthritis: KNEES HIPS History of Rheumatoid Arthritis: HANDS 2. Height: 5 ft. 2 in. 157.5 cm. Weight: 136.4 lb. oz. 61.871 kg. Patient's BMI: 24.9 3. Vital Signs: BP: 157/91 Pulse: 61 Resp: 16 Temp: 02 Sat: 98 ECG Mon: 4. Pain Intensity: 8 5. Fall Risk: Dizziness: N Needs help standing or walking: N Fallen in the last 3 months: N Fall risk comments: fell a week ago- hit head- ER- HAS SEEN PCP 6. Patient on Blood Thinner: None 7. History of Hypertension: Y 8. Opioid Therapy greater than 6 weeks: Y Opiate Contract Signed: 02/03/18 9. Risk Assessment Tool Provided: janie 10. Functional Assessment Tool: 11. Recreational Drug Use: Never Drug Type: Tobacco Use: Former Smoker Tobacco Type: Amount or Packs/day: How Many Years: Alcohol Use: No Frequency: Quant:
== END | disposition home or self-care (01) ==
LOC: PAIN 03-13 06:52
DX: M25.561 Pain in right knee (principal); M17.11 Unilateral primary osteoarthritis, right knee; I10 Essential (primary) hypertension; M19.90 Unspecified osteoarthritis, unspecified site; Z98.890 Other specified postprocedural states; Z79.899 Other long term (current) drug therapy; Z96.652 Presence of left artificial knee joint; Z87.891 Personal history of nicotine dependence

== ENCOUNTER → 2020-03-28 | Outpatient (CLI) | payer OTHER, BC | LOC: PAIN 07:57 | DX: M17.11 Unilateral primary osteoarthritis, right knee (principal) ==

== ENCOUNTER → 2020-05-09 | Outpatient (CLI) | payer OTHER, BC ==
[~2020-05-09] VITALS: Ht 157.5 cm; Wt 60.7 kg
--- NOTE | ~2020-05-09 | HPC ---
[facility] [place] [address] PAIN MANAGEMENT CONSULTATION Name: DAREK BRYAN Room #: REG RENITA Ki.#: [id number] Admission: 05/09/20 Attend Phys: Antelmo Hodgson MD Discharge: Date of : 39 Report #: [id number] THIS REPORT FOR: cc: Med Christopher MD,Med Hodgson,Antelmo Jacques MD ~ CC: Med Hodgson DATE OF SERVICE: 05/09/2020 Followup visit for chronic pain. The patient is here today complaining of pain in her right knee. This affects her ability to get around and walk. Pain intensity has increased. She has had relief from injections in the past. We talked a little bit about knee replacement. She had 1 done on the left and it continues to hurt. Although it is better, she is still a bit reluctant to go forward with additional assessment with the thought of replacing her knee. We have x-rays to confirm that there is arthropathy and if she can get some relief from the injections, we will continue that. PQRS REVIEW: Positive for osteoarthritis in her knees obviously, but also she complains of spondylosis of the back and hips. She has some history of rheumatoid arthritis with hands involvement. BMI is 24, blood pressure 118/76, heart rate 82, respirations 16, O2 sat 97. Her pain intensity today is an 8/10. Pain is worse with standing and weightbearing. She did fall a week ago. She went to the Emergency Room and had seen her PCP. Fortunately, it does not appear that she is going to have any long-term problems and her score is importance for stability using the cane if necessary. She is on no blood thinners. She has a history of hypertension. All medications were reviewed and reconciled from the electronic medical record. We do not prescribe medicines other than recommendations of nonsteroidal anti-inflammatory cream diclofenac, which she has used with some benefit. She denies tobacco and alcohol. PHYSICAL EXAMINATION: MUSCULOSKELETAL: On physical exam of the right knee, is tender to the touch, mostly medially and there seems to be small effusion, although later it appears that this may just be soft tissue swelling. She has pain with flexion and extension; has some pain with standing and weightbearing. She does not complain of her usual bursitis today. IMPRESSION: Chronic intractable pain. Multiple pain generators. She has been [facility] [address] [place] [address] PAIN MANAGEMENT CONSULTATION Name: RASHEL GUPTADAREK Jacklyn Room #: REG CLPradeep Flannery#: [id number] Admission: 05/09/20 Attend Phys: Antelmo Hodgson MD Discharge: Date of : 39 Report #: [id number] diagnosed with fibromyalgia, arthritis of the hips and knees, trochanteric bursitis, degenerative arthritis of the wrists. All of these mechanical, structural and myofascial issues have been focus of attention in the past. PROCEDURE: Right knee injection under fluoroscopic guidance. She was taken to fluoroscopic suite, placed supine. Skin was prepped with ChloraPrep and a 25-gauge 2-inch needle was advanced into the joint space. After negative aspiration, I injected 1 mL of 0.5% bupivacaine mixed with 40 mg of triamcinolone. She tolerated the procedure well. There were no complications. I did perform an arthrogram before the injection and good spread of dye was seen within the joint space. By: [id number] Antelmo Hodgson MD /nt
[2020-05-09 09:53] VITALS: BP 118/76
--- NOTE | 2020-05-09 09:59 | NUR ---
Pain Clinic Assessment: 1. History of Osteoarthritis: KNEES HIPS BACK History of Rheumatoid Arthritis: HANDS 2. Height: 5 ft. 2 in. 157.5 cm. Weight: 133.8 lb. oz. 60.691 kg. Patient's BMI: 24.5 3. Vital Signs: BP: 118/76 Pulse: 82 Resp: 16 Temp: 02 Sat: 97 ECG Mon: 4. Pain Intensity: 8 5. Fall Risk: Dizziness: N Needs help standing or walking: N Fallen in the last 3 months: N Fall risk comments: fell a week ago- hit head- ER- HAS SEEN PCP 6. Patient on Blood Thinner: None 7. History of Hypertension: Y 8. Opioid Therapy greater than 6 weeks: Y Opiate Contract Signed: 02/03/18 9. Risk Assessment Tool Provided: janie 10. Functional Assessment Tool: 11. Recreational Drug Use: Never Drug Type: Tobacco Use: Former Smoker Tobacco Type: Amount or Packs/day: How Many Years: Alcohol Use: No Frequency: Quant:
== END | disposition home or self-care (01) ==
LOC: PAIN 04-22 08:06
PROVIDERS: ATTEND Anesthesiology Pain Medicine
DX: M25.561 Pain in right knee (principal); M17.0 Bilateral primary osteoarthritis of knee; G89.29 Other chronic pain; M79.7 Fibromyalgia; M16.0 Bilateral primary osteoarthritis of hip; M19.032 Primary osteoarthritis, left wrist; M19.031 Primary osteoarthritis, right wrist; Z98.890 Other specified postprocedural states; Z79.899 Other long term (current) drug therapy; Z87.891 Personal history of nicotine dependence; Z96.652 Presence of left artificial knee joint

== ENCOUNTER → 2020-07-11 | Outpatient (CLI) | payer OTHER, BC ==
[~2020-07-11] VITALS: Ht 157.5 cm; Wt 61.0 kg
[~2020-07-11] MED LIST changes: +TRAMADOL HCL50 MG PO
[2020-07-11 14:37] VITALS: BP 158/83
--- NOTE | 2020-07-11 14:54 | NUR ---
Pain Clinic Assessment: 1. History of Osteoarthritis: KNEES HIPS BACK History of Rheumatoid Arthritis: HANDS 2. Height: 5 ft. 2 in. 157.5 cm. Weight: 134.4 lb. oz. 60.963 kg. Patient's BMI: 24.6 3. Vital Signs: BP: 158/83 Pulse: 76 Resp: 14 Temp: 02 Sat: 97 ECG Mon: 4. Pain Intensity: 9 5. Fall Risk: Dizziness: N Needs help standing or walking: N Fallen in the last 3 months: N Fall risk comments: fell a week ago- hit head- ER- HAS SEEN PCP 6. Patient on Blood Thinner: None 7. History of Hypertension: Y 8. Opioid Therapy greater than 6 weeks: Y Opiate Contract Signed: 02/03/18 9. Risk Assessment Tool Provided: janie 10. Functional Assessment Tool: 11. Recreational Drug Use: Never Drug Type: Tobacco Use: Former Smoker Tobacco Type: Amount or Packs/day: How Many Years: Alcohol Use: No Frequency: Quant:
== END | disposition home or self-care (01) ==
LOC: PAIN 06:58
PROVIDERS: ATTEND Anesthesiology Pain Medicine
DX: M25.561 Pain in right knee (principal); M17.11 Unilateral primary osteoarthritis, right knee; G89.29 Other chronic pain; Z96.652 Presence of left artificial knee joint; Z98.890 Other specified postprocedural states; Z79.899 Other long term (current) drug therapy; Z87.891 Personal history of nicotine dependence

== ENCOUNTER → 2020-09-19 | Outpatient (CLI) | payer OTHER, BC ==
[~2020-09-19] VITALS: Ht 157.5 cm; Wt 61.4 kg
[2020-09-19 09:23] VITALS: BP 126/70
--- NOTE | 2020-09-19 09:38 | NUR ---
Pain Clinic Assessment: 1. History of Osteoarthritis: KNEES HIPS BACK History of Rheumatoid Arthritis: HANDS 2. Height: 5 ft. 2 in. 157.5 cm. Weight: 135.4 lb. oz. 61.417 kg. Patient's BMI: 24.8 3. Vital Signs: BP: 126/70 Pulse: 91 Resp: 18 Temp: 02 Sat: 100 ECG Mon: 4. Pain Intensity: 9 5. Fall Risk: Dizziness: N Needs help standing or walking: N Fallen in the last 3 months: N Fall risk comments: fell a week ago- hit head- ER- HAS SEEN PCP 6. Patient on Blood Thinner: None 7. History of Hypertension: Y 8. Opioid Therapy greater than 6 weeks: Y Opiate Contract Signed: 02/03/18 9. Risk Assessment Tool Provided: janie 10. Functional Assessment Tool: 11. Recreational Drug Use: Never Drug Type: Tobacco Use: Former Smoker Tobacco Type: Cigarettes Amount or Packs/day: How Many Years: Alcohol Use: No Frequency: Quant:
== END | disposition home or self-care (01) ==
LOC: PAIN 06:37
PROVIDERS: ATTEND Anesthesiology Pain Medicine
DX: M70.62 Trochanteric bursitis, left hip (principal); M70.61 Trochanteric bursitis, right hip; G89.29 Other chronic pain; I10 Essential (primary) hypertension; M19.90 Unspecified osteoarthritis, unspecified site; Z98.890 Other specified postprocedural states; Z79.899 Other long term (current) drug therapy; Z87.891 Personal history of nicotine dependence; Z88.8 Allergy status to other drugs, medicaments and biological substances

== ENCOUNTER → 2021-05-26 | Outpatient (CLI) | payer OTHER, BC ==
[~2021-05-26] VITALS: Ht 157.5 cm; Wt 58.6 kg
[~2021-05-26] MED LIST changes: +DOXYCYCLINE 10100 M2 PO; +VITAMIN D3 COM1 EACH PO; +VITRON-C TABLE1 EAC1 PO
[2021-05-26 11:02] VITALS: BP 126/74
--- NOTE | 2021-05-26 12:03 | NUR ---
Pain Clinic Assessment: 1. History of Osteoarthritis: KNEES HIPS BACK History of Rheumatoid Arthritis: HANDS 2. Height: 5 ft. 2 in. 157.5 cm. Weight: 129.2 lb. oz. 58.605 kg. Patient's BMI: 23.6 3. Vital Signs: BP: 126/74 Pulse: 75 Resp: 16 Temp: 02 Sat: 97 ECG Mon: 4. Pain Intensity: 9 5. Fall Risk: Dizziness: N Needs help standing or walking: N Fallen in the last 3 months: N Fall risk comments: fell a week ago- hit head- ER- HAS SEEN PCP 6. Patient on Blood Thinner: None 7. History of Hypertension: Y 8. Opioid Therapy greater than 6 weeks: Y Opiate Contract Signed: 02/03/18 9. Risk Assessment Tool Provided: janie 10. Functional Assessment Tool: 11. Recreational Drug Use: Never Drug Type: Tobacco Use: Former Smoker Tobacco Type: Amount or Packs/day: How Many Years: Alcohol Use: No Frequency: Quant:
== END | disposition home or self-care (01) ==
LOC: PAIN 12-30 12:47
PROVIDERS: ATTEND Anesthesiology Pain Medicine
DX: M25.561 Pain in right knee (principal); G89.29 Other chronic pain; M19.90 Unspecified osteoarthritis, unspecified site; Z98.890 Other specified postprocedural states; Z79.899 Other long term (current) drug therapy; Z87.891 Personal history of nicotine dependence; Z88.8 Allergy status to other drugs, medicaments and biological substances

== ENCOUNTER → 2021-08-28 | Outpatient (CLI) | payer OTHER, BC ==
[~2021-08-28] VITALS: Ht 157.5 cm; Wt 59.9 kg
[2021-08-28 10:38] VITALS: BP 147/75
--- NOTE | 2021-08-28 10:45 | NUR ---
Pain Clinic Assessment: 1. History of Osteoarthritis: KNEES HIPS BACK History of Rheumatoid Arthritis: HANDS 2. Height: 5 ft. 2 in. 157.5 cm. Weight: 132.0 lb. oz. 59.875 kg. Patient's BMI: 24.1 3. Vital Signs: BP: 147/75 Pulse: 73 Resp: 16 Temp: 02 Sat: 97 ECG Mon: 4. Pain Intensity: 9 5. Fall Risk: Dizziness: N Needs help standing or walking: N Fallen in the last 3 months: N Fall risk comments: fell a week ago- hit head- ER- HAS SEEN PCP 6. Patient on Blood Thinner: None 7. History of Hypertension: Y 8. Opioid Therapy greater than 6 weeks: Y Opiate Contract Signed: 02/03/18 9. Risk Assessment Tool Provided: janie 10. Functional Assessment Tool: 11. Recreational Drug Use: Never Drug Type: Tobacco Use: Former Smoker Tobacco Type: Amount or Packs/day: How Many Years: Alcohol Use: No Frequency: Quant:
== END | disposition home or self-care (01) ==
LOC: PAIN 06-09 10:56
PROVIDERS: ATTEND Anesthesiology Pain Medicine
DX: M25.561 Pain in right knee (principal); M17.11 Unilateral primary osteoarthritis, right knee; I10 Essential (primary) hypertension; M19.90 Unspecified osteoarthritis, unspecified site; Z98.890 Other specified postprocedural states; Z79.899 Other long term (current) drug therapy; Z79.891 Long term (current) use of opiate analgesic; Z88.8 Allergy status to other drugs, medicaments and biological substances